=== PATIENT | female | born 1980 | race Caucasian/White ===

== ENCOUNTER 2021-03-20 17:45 | Emergency (ER) | payer OTHER, SELFPAY ==
[2021-03-20 18:00] VITALS: BP 144/75; PULSE 86; RESP 20; TEMP 37; O2SAT 100
--- NOTE | 2021-03-20 18:32 | ED.SKABFB ---
HPI - Skin/Abscess/Foreign Bdy General Chief complaint: Skin/Abscess/Foreign Body Stated complaint: Insect Bite /Work Comp Time Seen by Provider: 03/20/21 18:17 Source: patient and RN notes reviewed Mode of arrival: ambulatory Limitations: no limitations History of Present Illness HPI narrative: Patient presents today complaining of a possible spider bite to her anterior left lower leg. It occurred at 1 AM. She felt a sharp pain and states that within an hour she noted redness and swelling to the area. As the day has been going on the redness and swelling has been increasing. She currently rates her pain 10/05 and has been applying triple antibiotic ointment, taking Benadryl and ibuprofen. Patient works at [employer]. MD complaint: insect bite/sting Related Data Home Medications Medication Instructions Recorded Confirmed celecoxib 200 mg PO DAILY 03/20/21 03/20/21 dextroamphetamine-amphetamine 30 mg PO DAILY 03/20/21 03/20/21 [Adderall XR] ergocalciferol (vitamin D2) 1,250 mcg PO WEEKLY 03/20/21 03/20/21 [Vitamin D2] pregabalin 50 mg PO TID 03/20/21 03/20/21 sumatriptan succinate 50 mg PO DAILY PRN 03/20/21 03/20/21 venlafaxine 75 mg PO DAILY 03/20/21 03/20/21 Allergies Allergy/AdvReac Type Severity Reaction Status Date / Time [facility] [[facility] Allergy Intermediate Hives Verified 03/20/21 18:25 codeine Allergy Intermediate Hives Verified 03/20/21 18:24 meperidine Allergy Intermediate Hives Verified 03/20/21 18:24 metronidazole Allergy Intermediate Hives Verified 03/20/21 18:24 Review of Systems Review of Systems: CONSTITUTIONAL: Denies body aches, fever, chills, or sweats. EYES: Denies visual changes, redness, or discharge. ENT: Denies rhinorrhea, congestion, sore throat, or otalgia. CARDIOVASCULAR: Denies chest pain, palpitations, or edema. RESPIRATORY: Denies cough or dyspnea. GASTROINTESTINAL: Denies abdominal pain, nausea, vomiting, or diarrhea. GENITOURINARY: Denies dysuria or hematuria. SKIN: Denies rash, itching. + Insect bite to left lower leg MUSCULOSKELETAL: Denies back pain, joint pain, or myalgia. NEUROLOGIC: Denies headache, numbness, tingling, or weakness. PSYCH: Denies depression or anxiety. [facility] Surgical History Surgical History (Updated 03/20/21 @ 18:35 by Maryjo Palomares, [employer], ) H/O adenoidectomy H/O gastric bypass H/O tubal ligation History of cholecystectomy Hx of tonsillectomy Family History Family History Father Depression Family history of chronic obstructive pulmonary disease Family history of congestive heart failure Social History Social History Smoking status: Never smoker Alcohol intake: never Comments At time of signature, I have reviewed and agree with nursing past medical, surgical, social and family history unless otherwise noted. Please see nursing chart for further information. There is no relevant family history pertinent to the presenting complaint Exam Narrative: GENERAL: Well-appearing, well-nourished, and in no acute distress. HEAD: Normocephalic, atraumatic. EYES: EOMI. No redness or drainage. Conjunctivae normal. ENT: Mucous membranes pink and moist. NECK: Normal AROM. CHEST: No respiratory distress. EXTREMITIES: Normal range of motion. SKIN: Warm, dry, no rash. Capillary refill normal. Normal skin turgor. Left lower le x 13 cm area of mild erythema and mild induration to the left lower anterior leg with obvious large double puncture wounds to the center. Entire area is very tender to palpation. No red streaking noted. No obvious edema noted to the entire leg. Scant localized edema noted to the area of erythema. Distal sensation intact. Capillary refill normal. Posterior tibial pulse normal. Full range of motion of the ankle. NEURO: No focal deficits. Alert and oriented x3. Gait silvia
== END 2021-03-20 18:42 | disposition home or self-care (01) ==
PROVIDERS: Emergency Provider Nurse Practitioner
DX: S80.862A Insect bite (nonvenomous), left lower leg, initial encounter (principal); W57.XXXA Bitten or stung by nonvenomous insect and other nonvenomous arthropods, initial encounter; L03.116 Cellulitis of left lower limb; Z98.84 Bariatric surgery status; Z86.16 Personal history of COVID-19; F90.9 Attention-deficit hyperactivity disorder, unspecified type
CPT/HCPCS: 99213; G0463